=== PATIENT | female | born 1955 | race Two or more races ===

== ENCOUNTER 2020-12-24 17:17 | Emergency (ER) | payer MEDICAID ==
[~2020-12-24] VITALS: Ht 157.5 cm; Wt 67.0 kg
[2020-12-24 17:32] VITALS: BP 158/107
[2020-12-24] MEDS ORDERED: ACETAMINOPHEN 325MG TABLET PO ONE (19:00)
== END 2020-12-24 19:45 | disposition left against medical advice (07) ==
LOC: ER 17:29
DX: K64.9 Unspecified hemorrhoids (principal)
CPT/HCPCS: 99281